=== PATIENT | female | born 1995 | race Caucasian/White ===

== ENCOUNTER 2016-08-20 14:35 | Emergency (ER) | payer BC ==
[~2016-08-20] VITALS: Ht 170.2 cm; Wt 109.1 kg
[~2016-08-20 14:35] MED LIST: CELEXA10 MG PO; MOTRIN 600600 MG/TAB PO; NO HOME MEDICATIONS; PERCOCET 325 MG1 TA2 PO
[2016-08-20 14:45] VITALS: TEMP 98.2
[2016-08-20] MEDS ORDERED: AMOXICILLIN 50500 MG PO (14:53)
[2016-08-20] MEDS ORDERED: MOTRIN 600600 MG/TAB (14:54)
[2016-08-20] MEDS ORDERED: OMNICEF 300MG300 MG PO (16:31)
[2016-08-20 16:44] VITALS: BP 131/72; PULSE 92
== END 2016-08-20 16:44 | disposition home or self-care (01) ==
LOC: COL.ER 14:35
DX: J02.9 Acute pharyngitis, unspecified (principal); Z33.1 Pregnant state, incidental

== ENCOUNTER → 2017-04-09 | Outpatient (CLI) | payer BC ==
[~2017-04-09] VITALS: Ht 172.7 cm; Wt 130.5 kg
[~2017-04-09] MED LIST changes: +AMOXICILLIN 50500 MG PO; +IBU600 MG PO; +MOTRIN 600600 MG/TAB; +OMNICEF 300MG300 MG PO
[2017-04-09 16:59] VITALS: BP 143/74; PULSE 96; TEMP 97.8
[2017-04-09 17:30] VITALS: BP 131/68; PULSE 93
== END ==
LOC: LDRO 03-04 14:11 → EDSTATUS 07:00 → LDRO 10:00 → LDR 04-13 06:43 → EDSTATUS 04-13 11:14
DX: Z34.83 Encounter for supervision of other normal pregnancy, third trimester (principal); Z3A.38 38 weeks gestation of pregnancy

== ENCOUNTER 2017-04-13 07:00 | Inpatient (IN) | payer BC ==
[~2017-04-13] VITALS: Ht 172.7 cm; Wt 130.5 kg
[2017-04-13] VITALS (36 sets, daily range): BP systolic 103–151; BP diastolic 56–88; PULSE 75–111; TEMP 97.8–98.2
[~2017-04-13 07:00] MED LIST changes: -IBU600 MG PO
[2017-04-13 10:00] LABS: BASO % 0.3 % (0.0-2.0); EOS # 0.1 (0.0-0.7); EOS % 0.5 % (0-4.0); GRAN # 8.9 (1.4-6.5); GRAN % 75.1 % (42.2-75.2); LYMPH # 2.1 (1.2-3.4); LYMPH % 17.4 % (20.0-51.0); MEAN CELL VOLUME 72 fl (80.0-100.0); MEAN CORPUSCULAR HGB CONC 31 g/dl (33.0-37.0); MEAN PLATELET VOLUME 10.6 fl (7.4-10.4); MONO # 0.7 (0.1-0.6); PLATELET COUNT 221 K/mm3 (130-400); RED BLOOD COUNT 4.31 M/mm3 (4.10-5.30); REDCELL DISTRIBUTION WIDTH-CV 16.8 % (11.5-14.5); WHITE BLOOD COUNT 11.8 K/mm3 (4.8-10.8)
[2017-04-13 10:03] LABS: HEMATOCRIT 31.1 % (37.0-47.0); HEMOGLOBIN 9.6 g/dl (12.5-16.0); MEAN CORPUSCULAR HEMOGLOBIN 22 pg (27.0-31.0)
[2017-04-14 03:30] VITALS: BP 107/53; PULSE 86
[2017-04-14 08:00] VITALS: BP 128/80; PULSE 82; TEMP 97.9
[2017-04-14 15:25] VITALS: BP 128/74; PULSE 88; TEMP 98.1
[2017-04-14 19:56] VITALS: BP 131/75; PULSE 105; TEMP 97.5
[2017-04-15 07:06] VITALS: BP 127/69; PULSE 79; TEMP 98.1
[2017-04-15] MEDS ORDERED: IBU600 MG PO (11:43)
[2017-04-15] MEDS ORDERED: PERCOCET 325 MG1 TA2 PO (11:43)
== END 2017-04-15 14:00 | disposition home or self-care (01) | DRG 775 ==
LOC: LDR 07:00 → OB 07:00
PROVIDERS: Obstetrics & Gynecology
PROC: 10E0XZZ Delivery of Products of Conception, External Approach (ICD-10-PCS; principal; 2017-04-13)
PROC: 3E033VJ Introduction of Other Hormone into Peripheral Vein, Percutaneous Approach (ICD-10-PCS; 2017-04-13)
DX: O99.824 Streptococcus B carrier state complicating childbirth (principal); O99.02 Anemia complicating childbirth; D64.9 Anemia, unspecified; O69.82X0 Labor and delivery complicated by other cord entanglement, without compression, not applicable or unspecified; Z3A.39 39 weeks gestation of pregnancy; Z37.0 Single live birth
CPT/HCPCS: J2540; J2590; J7120

== ENCOUNTER 2019-07-30 22:23 | Emergency (ER) | payer SELFPAY ==
[~2019-07-30] VITALS: Ht 172.7 cm; Wt 104.5 kg
[~2019-07-30 22:23] MED LIST changes: +IBU600 MG PO
[2019-07-30 22:28] VITALS: TEMP 98.9
[2019-07-30] MEDS ORDERED: NEXPLANON68 MG ID (22:40)
[2019-07-30] MEDS ORDERED: FLEXERIL 1010 MG/TAB PO (23:01)
[2019-07-30 23:54] VITALS: BP 140/86; PULSE 83
== END 2019-07-30 23:54 | disposition home or self-care (01) ==
LOC: COL.ER 22:23
DX: R07.89 Other chest pain (principal); F32.9 Major depressive disorder, single episode, unspecified; F41.9 Anxiety disorder, unspecified; E66.9 Obesity, unspecified; F17.210 Nicotine dependence, cigarettes, uncomplicated
CPT/HCPCS: J1885

== ENCOUNTER 2019-09-08 00:14 | Emergency (ER) | payer SELFPAY ==
[~2019-09-08] VITALS: Ht 172.7 cm; Wt 100.9 kg
[~2019-09-08 00:14] MED LIST changes: +FLEXERIL 1010 MG/TAB PO; +NEXPLANON68 MG ID
[2019-09-08 01:22] LABS: COLLECTION METHOD CLEAN CATCH
[2019-09-08 01:27] LABS: PH 6 (5-8); SQUAMOUS EPITHELIAL 0-2 /hpf; URINE APPEARANCE Clear; URINE BACTERIA None Seen /hpf; URINE BILIRUBIN Negative (NEGATIVE); URINE BLOOD 2+ (NEGATIVE); URINE COLOR Straw; URINE GLUCOSE Negative (NEGATIVE); URINE KETONE Negative (NEGATIVE); URINE LEUKOCYTE ESTERASE Negative (NEGATIVE); URINE NITRATE Negative (NEGATIVE); URINE PROTEIN(semi-quant) Negative (NEGATIVE); URINE RBC 0-2 /hpf; URINE UROBILINOGEN Negative (NEGATIVE)
[2019-09-08 01:35] LABS: ALANINE AMINOTRANSFERASE 20 U/L (9-52); ALBUMIN 4.6 gm/dL (3.5-5.0); ALCOHOL(ethanol),MEDICAL 62 mg/dL; ALKALINE PHOSPHATASE 73 U/L (50-136); ANION GAP 13 mmol/L (7-16); AST,SGOT 19 U/L (15-37); BILIRUBIN,TOTAL 0.6 mg/dL (0.0-1.0); BLOOD UREA NITROGEN 15 mg/dL (7-17); CALCIUM 9.2 mg/dL (8.4-10.2); CARBON DIOXIDE 23 mmol/L (22-30); CHLORIDE 112 mmol/L (98-107); CREATININE, serum 0.99 (0.52-1.25); GLUCOSE 85 mg/dL (74-106); POTASSIUM 3.4 mmol/L (3.4-5.0); SODIUM 148 mmol/L (137-145); TOTAL PROTEIN 7.8 gm/dL (6.4-8.2)
[2019-09-08 01:41] LABS: BASO % 0.3 % (0.0-2.0); EOS # 0.1 (0.0-0.7); EOS % 0.8 % (0-4.0); GRAN % 69.5 % (42.2-75.2); HEMATOCRIT 47.5 % (37.0-47.0); HEMOGLOBIN 15.3 g/dl (12.5-16.0); LYMPH # 2.9 (1.2-3.4); LYMPH % 25.3 % (20.0-51.0); MEAN CELL VOLUME 84 fl (80.0-100.0); MEAN CORPUSCULAR HEMOGLOBIN 27 pg (27.0-31.0); MEAN CORPUSCULAR HGB CONC 32 g/dl (33.0-37.0); MEAN PLATELET VOLUME 10.3 fl (7.4-10.4); MONO # 0.4 (0.1-0.6); MONO % 3.8 % (1.7-9.3); PLATELET COUNT 239 K/mm3 (130-400); RED BLOOD COUNT 5.63 M/mm3 (4.10-5.30); REDCELL DISTRIBUTION WIDTH-CV 14.6 % (11.5-14.5)
[2019-09-08 01:45] LABS: TRICYCLIC ANTIDEPRESS URINE NEGATIVE
[2019-09-08 01:46] LABS: ACETAMINOPHEN < 10 ug/mL (10-30)
[2019-09-08 05:25] VITALS: BP 123/73; PULSE 78
== END 2019-09-08 05:35 | disposition home or self-care (01) ==
LOC: COL.ER 00:14
PROVIDERS: Nurse Practitioner
DX: S71.112A Laceration without foreign body, left thigh, initial encounter (principal); R45.851 Suicidal ideations; F41.9 Anxiety disorder, unspecified; F32.9 Major depressive disorder, single episode, unspecified; F17.210 Nicotine dependence, cigarettes, uncomplicated; X78.1XXA Intentional self-harm by knife, initial encounter

== ENCOUNTER 2023-12-10 13:45 | Emergency (ER) | payer MEDICAID ==
[~2023-12-10] VITALS: Ht 170.2 cm; Wt 86.4 kg
[~2023-12-10 13:45] MED LIST changes: +CEPHALEXIN500 M1 PO
[2023-12-10 13:59] VITALS: TEMP 97.8
[2023-12-10] MEDS ORDERED: CIPRO 500MG TA500 MG PO (15:06)
[2023-12-10 15:07] LABS: COLLECTION METHOD CLEAN CATCH
[2023-12-10] MEDS ORDERED: Ciprofloxacin 500 MG TAB PO ONE (15:15)
[2023-12-10 15:19] LABS: URINE APPEARANCE CLEAR (CLEAR/HAZY); URINE BLOOD NEGATIVE (NEGATIVE); URINE COLOR ORANGE (YELLOW); URINE GLUCOSE NEGATIVE (NEGATIVE); URINE KETONE NEGATIVE (NEGATIVE); URINE NITRATE POSITIVE (NEGATIVE); URINE PROTEIN(semi-quant) 1+ (NEGATIVE)
[2023-12-10 15:31] VITALS: BP 129/86; PULSE 78
== END 2023-12-10 15:33 | disposition home or self-care (01) ==
LOC: COL.ER 13:45
PROVIDERS: Personal Emergency Response Attendant
DX: N39.0 Urinary tract infection, site not specified (principal)